=== PATIENT | male | born 1950 | race Hispanic/Latino ===

== ENCOUNTER 2021-09-14 14:30 | Observation (INO) | payer MEDICARE ==
[2021-09-14 16:24] LABS: #Eosinphils 0.2 thou/uL (0.0-0.7); #Lymphocytes 1.5 thou/uL (1.20-3.40); #Monocytes 1.1 thou/uL (0.11-0.59); #Neutrophils 5.8 thou/uL (1.40-6.50); %Basophils 0.1 % (0.0-1.0); %Eosinophils 2.5 % (0.0-10.0); %Monocytes 12.7 % (0.0-10.0); %Neutrophils 67.7 % (42.0-75.0); Hemoglobin 11.3 g/dL (14.0-18.0); Mean Corpuscular HGB CONC 34.3 g/dL (32.0-36.0); Mean Corpuscular Hemoglobin 30.1 pg (27.0-31.0); Mean Corpuscular Volume 87.6 fL (78.0-98.0); Mean Platelet Volume 7.5 fL (7.4-10.4); Platelet Count 313 thou/uL (130-400); RBC Distribution Width 12.8 % (11.5-14.5); Red Blood Cell (RBC) Count 3.77 mill/uL (4.70-6.10); White Blood Cell (WBC) Count 8.5 thou/uL (4.8-10.8)
[2021-09-14 16:40] LABS: ALT (SGPT) 8 U/L (8-55); AST (SGOT) 22 U/L (5-34); Albumin 3.4 g/dL (3.4-4.8); Alkaline Phosphatase 60 U/L (40-110); Anion Gap 10 mmol/L (10-20); BUN (Urea Nitrogen) 20 mg/dL (8.4-25.7); Bilirubin, Total 0.4 mg/dL (0.2-1.2); Calc. Creatinine Clearance 0 mL/min (70-130); Calcium 9.9 mg/dL (7.8-10.44); Carbon Dioxide 28 mmol/L (23-31); Chloride 99 mmol/L (98-107); Globulin 5.2 g/dL (2.4-3.5); Glucose 103 mg/dL (83-110); Protein, Total 8.6 g/dL (5.8-8.1); Sodium 133 mmol/L (136-145)
[2021-09-14] MEDS ORDERED: Ondansetron ODT 4 MG TAB PO PRN (19:54)
[2021-09-14] MEDS ORDERED: Ondansetron PF 4 MG/2 ML Vial IVP PRN (19:54)
[2021-09-14] MEDS ORDERED: Acetaminophen 325 MG TAB PO PRN (19:55)
[2021-09-14 20:06] VITALS: BMI 24.8
[2021-09-15] MEDS ORDERED: HYDROcodone/Acetaminophen 5/325 mg Tablet PO PRN (00:12)
[2021-09-15 05:02] LABS: #Eosinphils 0.4 thou/uL (0.0-0.7); #Lymphocytes 1.8 thou/uL (1.20-3.40); #Neutrophils 4.9 thou/uL (1.40-6.50); %Basophils 0.2 % (0.0-1.0); %Eosinophils 4.4 % (0.0-10.0); %Lymphocytes 22.2 % (21.0-51.0); %Monocytes 12.5 % (0.0-10.0); %Neutrophils 60.7 % (42.0-75.0); Hemoglobin 11.1 g/dL (14.0-18.0); Mean Corpuscular HGB CONC 33.9 g/dL (32.0-36.0); Mean Corpuscular Hemoglobin 29.6 pg (27.0-31.0); Mean Corpuscular Volume 87.5 fL (78.0-98.0); Mean Platelet Volume 7.5 fL (7.4-10.4); Platelet Count 306 thou/uL (130-400); RBC Distribution Width 12.7 % (11.5-14.5); Red Blood Cell (RBC) Count 3.75 mill/uL (4.70-6.10); White Blood Cell (WBC) Count 8.1 thou/uL (4.8-10.8)
[2021-09-15 05:28] LABS: Anion Gap 10 mmol/L (10-20); BUN (Urea Nitrogen) 17 mg/dL (8.4-25.7); Calc. Creatinine Clearance 84 mL/min (70-130); Calcium 9.5 mg/dL (7.8-10.44); Carbon Dioxide 27 mmol/L (23-31); Chloride 102 mmol/L (98-107); Glucose 98 mg/dL (83-110); Potassium 4.1 mmol/L (3.5-5.1); Sodium 135 mmol/L (136-145)
[2021-09-15 09:46] LABS: Uric Acid 5.3 mg/dL (3.5-7.2)
[2021-09-15 10:49] LABS: SARS-CoV-2 PCR by NAA Not Detected (NotDetected)
[2021-09-15] MEDS ORDERED: ISOVUE-370 76%-LOCM 1 ML ONE (11:16)
[2021-09-15] MEDS ORDERED: Gadobenate Dimeglumine 529 MG/1 ML (20ML VIAL) ONE (11:24)
[2021-09-15] MEDS: Sodium Chloride 0.9% 1,000 ML IV SCH (11:54)
[2021-09-15] MEDS ORDERED: Sodium Bicarbonate 2.5 MEQ/5 ML VIAL ONE (15:27)
[2021-09-15] MEDS ORDERED: Lidocaine 1% PF 5 ML VIAL ONE (15:27)
[2021-09-15 21:38] LABS: CEA, Serum 13.22 ng/mL (< or = 5.0)
[2021-09-15 23:14] LABS: PSA-Asymptomatic (SCREENING) 5.26 ng/mL (0-4.0)
[2021-09-16] MEDS: Sodium Chloride 0.9% 1,000 ML IV SCH ×2 (00:38→06:39)
[2021-09-16 05:42] LABS: Anion Gap 12 mmol/L (10-20); BUN (Urea Nitrogen) 11 mg/dL (8.4-25.7); Calc. Creatinine Clearance 103 mL/min (70-130); Carbon Dioxide 22 mmol/L (23-31); Chloride 104 mmol/L (98-107); Glucose 95 mg/dL (83-110); Sodium 134 mmol/L (136-145)
[2021-09-16] MEDS ORDERED: Gadobenate Dimeglumine 529 MG/1 ML (20ML VIAL) ONE (11:36)
[2021-09-16 11:52] VITALS: TEMP 97.3
[2021-09-16 13:22] VITALS: BP 138/73
[2021-09-16 15:15] LABS: Kappa Lambda Light Chain Ratio 7.02 (0.26-1.65); Kappa Light Chains 135.5 mg/L (3.3-19.4); Lambda Light Chain 19.3 mg/L (5.7-26.3)
[2021-09-20 13:13] LABS: IFE-Serum Interpretation Note: (.); IgA - Total IgA (Sendout) 121 mg/dL (61-437); Immunoglobulin - G (Sendout) 946 mg/dL (603-1613); Immunoglobulin - M (Sendout) 3563 mg/dL (15-143)
[2021-09-20 15:13] LABS: A/G Ratio 0.7 (0.7-1.7); Albumin 3.2 g/dL (2.9-4.4); Alpha 1 0.3 g/dL (0.0-0.4); Alpha 2 0.7 g/dL (0.4-1.0); Beta 0.8 g/dL (0.7-1.3); Globulin, Total 4.8 g/dL (2.2-3.9); M-Spike 2.1 g/dL (Not Observed)
[2021-09-21 14:13] LABS: Beta-2-Microglobulin 2.7 mg/L (0.6-2.4)
== END 2021-09-16 12:15 | disposition home or self-care (01) ==
LOC: ERS 14:30 → SJJU 18:27
PROVIDERS: ADMIT Internal Medicine; ATTEND Internal Medicine
PROC: 0PB03ZX Excision of Sternum, Percutaneous Approach, Diagnostic (ICD-10-PCS; principal; 2021-09-15)
DX: C80.1 Malignant (primary) neoplasm, unspecified (principal); C79.51 Secondary malignant neoplasm of bone; C79.31 Secondary malignant neoplasm of brain; C78.00 Secondary malignant neoplasm of unspecified lung; R91.8 Other nonspecific abnormal finding of lung field; I10 Essential (primary) hypertension; F17.210 Nicotine dependence, cigarettes, uncomplicated; M25.78 Osteophyte, vertebrae; R59.0 Localized enlarged lymph nodes; M47.812 Spondylosis without myelopathy or radiculopathy, cervical region; K57.30 Diverticulosis of large intestine without perforation or abscess without bleeding; M43.17 Spondylolisthesis, lumbosacral region; N40.0 Benign prostatic hyperplasia without lower urinary tract symptoms; M48.02 Spinal stenosis, cervical region; G62.9 Polyneuropathy, unspecified; Z66 Do not resuscitate; Z79.899 Other long term (current) drug therapy; Z20.822 Contact with and (suspected) exposure to COVID-19
CPT/HCPCS: 10005; 70491; 71260; 72040; 72125; 72156 ×2; 74177; 80048 ×2; 80053; 82232; 82378; 82784 ×6; 83615; 83883 ×2; 84165; 84550; 85025 ×2; 86334; 88333; 99285; G0103; U0003; U0005; 36415; 84156; 84166; 88304; A9577; G0378; J7050; Q9966

== ENCOUNTER 2021-10-01 09:00 | Outpatient (CLI) | payer MEDICARE | END 2021-10-01 09:01 | disposition home or self-care (01) | LOC: PET 09:00 | PROVIDERS: ATTEND Internal Medicine Hematology & Oncology | DX: C34.90 Malignant neoplasm of unspecified part of unspecified bronchus or lung (principal); C79.51 Secondary malignant neoplasm of bone; C77.8 Secondary and unspecified malignant neoplasm of lymph nodes of multiple regions; C78.7 Secondary malignant neoplasm of liver and intrahepatic bile duct | CPT/HCPCS: 78815; A9552 ==